=== PATIENT | male | born 1950 | race African-American/Black ===

== ENCOUNTER → 2017-10-01 | Outpatient (CLI) | payer MEDICARE, OTHER ==
[~2017-10-01] MED LIST: ALEV220T14 PO; LEVO200T4 PO; METO-393 PO; VALT1TAB PO; VIAG25TA PO
[2017-10-01 10:21] LABS: AUTOMATED NEUTROPHIL # 3.2 TH/MM3 (1.8-7.7); BASOPHIL % 0.5 % (0.0-2.0); EOSINOPHIL # 0.2 TH/MM3 (0-0.4); EOSINOPHIL % 4.2 % (0.0-4.0); HEMATOCRIT 36.3 % (39.0-51.0); HEMOGLOBIN 12.3 GM/DL (13.0-17.0); LYMPH % 29.2 % (9.0-44.0); LYMPHOCYTE # 1.7 TH/MM3 (1.0-4.8); MEAN CELL VOLUME 107.1 FL (80.0-100.0); MEAN CORPUSCULAR HEMOGLOBIN 36.2 PG (27.0-34.0); MEAN CORPUSCULAR HGB CONC 33.8 % (32.0-36.0); MEAN PLATELET VOLUME 9.2 FL (7.0-11.0); MONO % 10.9 % (0.0-8.0); MONOCYTE # 0.6 TH/MM3 (0-0.9); NEUT % 55.2 % (16.0-70.0); PLATELET COUNT 157 TH/MM3 (150-450); RED BLOOD COUNT 3.39 MIL/MM3 (4.50-5.90); RED CELL DISTRIBUTION WIDTH 13.4 % (11.6-17.2); WHITE BLOOD COUNT 5.8 TH/MM3 (4.0-11.0)
[2017-10-01 10:26] LABS: BILIRUBIN, URINE NEG (NEG); BLOOD, URINE NEG (NEG); GLUCOSE,URINE NEG (NEG); HYALINE CAST, URINE 36 /lpf (RARE); KETONE, URINE NEG (NEG); MUCUS URINE MOD /lpf (OCC); NITRITE,URINE NEG (NEG); PH, URINE 6.5 (5.0-8.5); SQUAMOUS EPITHELIAL CELL URINE <1 /hpf (0-5); URINE COLOR YELLOW (YELLW/STRAW); URINE LEUKOCYTE ESTERASE NEG (NEG)
[2017-10-01 10:30] LABS: INTERNATIONAL NORMALIZED RATIO 1.1 RATIO; PROTHROMBIN TIME - PATIENT 10.8 SEC (9.8-11.6)
[2017-10-01 10:33] LABS: AST (GOT) 20 U/L (15-37); BICARBONATE 26.7 MEQ/L (21.0-32.0); BLOOD UREA NITROGEN 13 MG/DL (7-18); CALCIUM 9.1 MG/DL (8.5-10.1); CHLORIDE 108 MEQ/L (98-107); CREATININE 1.25 MG/DL (0.60-1.30); GLOMERULAR FILTRATION RATE 70 ML/MIN (>89); GLUCOSE,FASTING 103 MG/DL (74-99); SODIUM (NA) 141 MEQ/L (136-145)
[2017-10-01 10:34] LABS: ALT (GPT) 34 U/L (12-78)
[2017-10-01 10:36] LABS: ALKALINE PHOSPHATASE 93 U/L (45-117); TOTAL BILIRUBIN ADULT 0.8 MG/DL (0.2-1.0); TOTAL PROTEIN 7.5 GM/DL (6.4-8.2)
[2017-10-01 10:42] LABS: WESTERGREN SEDIMENTATION RATE 22 mm/hr (0-20)
--- NOTE | 2017-10-01 12:19 | RADRPT ---
EXAM DATE/TIME: 10/01/2017 11:14 [facility] COMPARISON: No previous studies available for comparison. INDICATIONS : Evaluate for pneumonia, pneumothorax, or communicable disease. Pre-op left total hip. MEDICAL HISTORY : None. SURGICAL HISTORY : None. ENCOUNTER: Initial ACUITY: 1 day PAIN SCORE: 0/10 LOCATION: Bilateral chest FINDINGS: The heart size is normal. The lungs are free of focal consolidation. There does appear to be a possib le 0.9 cm mass at the lateral left lower lung. No effusion is seen. Spurs are seen in the thoracic sp ine. CONCLUSION: 1. No acute abnormality seen. 2. Possible 0.9 cm left lung mass. This can be further evaluated with a noncontrast CT examination a t some point. Garret Alvarenga MD on October 01, 2017 at 12:15 Board Certified Radiologist. This report was verified electronically.
--- NOTE | 2017-10-01 19:35 | EKG ---
Date Performed: 10/01/2017 Time Performed: 09:28:43 PTAGE: 67 years EKG: SINUS BRADYCARDIA MINIMAL VOLTAGE CRITERIA FOR LVH, CONSIDER NORMAL VARIANT BORDERLINE ECG NO PREVIOUS TRACING DOCTOR: Cameron Lovelace Interpretating Date/Time 10/01/2017 19:31:09
== END ==
LOC: CPRE 09:04
PROVIDERS: ATTEND Orthopaedic Surgery Sports Medicine
DX: Z01.812 Encounter for preprocedural laboratory examination (principal); Z01.810 Encounter for preprocedural cardiovascular examination; Z01.811 Encounter for preprocedural respiratory examination; Z01.818 Encounter for other preprocedural examination; M16.12 Unilateral primary osteoarthritis, left hip; M79.609 Pain in unspecified limb; M25.50 Pain in unspecified joint; R94.31 Abnormal electrocardiogram [ECG] [EKG]; Z96.60 Presence of unspecified orthopedic joint implant; Z79.01 Long term (current) use of anticoagulants
CPT/HCPCS: 36415; 71046; 80053; 81001; 85025; 85610; 85652; 85730; 93005

== ENCOUNTER 2017-10-18 07:00 | Inpatient (IN) | payer MEDICARE, OTHER ==
[~2017-10-18] VITALS: Ht 180.3 cm; Wt 128.4 kg
[2017-10-18] MEDS ORDERED: HYDR-3288 PO (07:09)
[2017-10-18] MEDS ORDERED: ASPI81CH6 CHEW (07:10)
[2017-10-18] MEDS ORDERED: ZOLPIDEM TARTRATE 5 MG TAB PO PRN (07:15)
[2017-10-18] MEDS ORDERED: Post-op Orders (for Pharmacy) XX ONE (07:15)
[2017-10-18] MEDS ORDERED: diphenhydrAMINE HCL 50 MG/ML VIAL IV PUSH PRN (07:15)
[2017-10-18] MEDS ORDERED: ACETAMINOPHEN/HYDROcodone 325 MG/7.5 MG TAB PO PRN (07:15)
[2017-10-18] MEDS ORDERED: ONDANSETRON HCL 4 MG/2 ML VIAL IVP PRN (07:15)
[2017-10-18] MEDS ORDERED: MORPHINE SULFATE 4 MG/ML INJ IV PUSH PRN (07:15)
[2017-10-18] MEDS ORDERED: DEXAMETHASONE SOD PHOS 20 MG/5 ML VIAL IV PUSH ONE (07:45)
[2017-10-18] MEDS ORDERED: POVIDONE IODINE 5% (ANTISEPSIS KIT) 4 APPLICATIONS EACH NARE PRN (07:45)
[2017-10-18] MEDS ORDERED: SODIUM CHLORID 0.9% 500 ML IV PRN (07:45)
[2017-10-18] MEDS ORDERED: ceFAZolin 2 GM PREMIX 50 ML IV SCH (07:45)
[2017-10-18] MEDS ORDERED: POVIDONE IODINE 7.5% SCRUB 118 ML BOTTLE TOPICAL SCH (07:45)
[2017-10-18] MEDS ORDERED: VANCOMYCIN 1000 MG/NS 250 ML (for <70 kg) IV SCH ×2 (07:45)
[2017-10-18] MEDS ORDERED: METOPROLOL TARTRATE 25 MG TAB PO PRN (07:45)
[2017-10-18] MEDS ORDERED: LACTATED RINGER'S 1000 ML IV PRN (07:45)
[2017-10-18] MEDS ORDERED: CHLORHEXIDINE GLUCONATE 4% SOLN 120 ML BTL TOPICAL SCH (07:45)
[2017-10-18] MEDS ORDERED: CHLORHEXIDINE GLUCONATE 2 % 1 PACK (2 CLOTHS) TOPICAL PRN (07:45)
[2017-10-18] MEDS ORDERED: VANCOMYCIN 1 GM/200 ML INJ 200 ML IV ONE (07:48)
[2017-10-18] MEDS ORDERED: LEVO175T2 PO (08:10)
[2017-10-18] MEDS ORDERED: TYLE325T PO (08:13)
[2017-10-18] MEDS ORDERED: TRANEXAMIC ACID IV SCH (09:00)
[2017-10-18] MEDS ORDERED: SODIUM CHLORIDE 0.9% IV SCH (09:00)
[2017-10-18] MEDS ORDERED: EXPAREL PERI-ARTICULAR INJECTION (TOTAL VOL. 60 ML) P-ARTICULR SCH ×2 (09:00)
[2017-10-18] MEDS ORDERED: TRANEXAMIC PERI-ARTICULAR 3,000 MG/NS 100 ML P-ARTICULR SCH ×2 (09:00)
[2017-10-18] MEDS: LEVOTHYROXINE SODIUM 200 MCG TAB PO SCH (09:00)
[2017-10-18] MEDS: METOPROLOL SUCCINATE 50 MG EXTENDED RELEASE TAB PO SCH (09:00)
[2017-10-18] MEDS ORDERED: GENTAMICIN SULFATE 80 MG/2 ML VIAL ONE (09:09)
[2017-10-18] MEDS ORDERED: FAMOTIDINE 20 MG/2 ML VIAL ONE (09:23)
[2017-10-18] MEDS ORDERED: ACETAMINOPHEN 1000 MG/100 ML 100 ML IV ONE (09:23)
[2017-10-18] MEDS ORDERED: MIDAZOLAM HCL 2 MG/2 ML VIAL ONE (09:23)
[2017-10-18] MEDS ORDERED: ROCURONIUM INJ 50 MG/5 ML SYRINGE IV PUSH ONE (12:00)
[2017-10-18] MEDS ORDERED: ONDANSETRON HCL 4 MG/2 ML VIAL IV ONE (12:00)
[2017-10-18] MEDS ORDERED: LIDOCAINE HCL 1% PF 5 ML SYRINGE OTHER ONE (12:00)
[2017-10-18] MEDS ORDERED: PROPOFOL 200 MG/20 ML AMP IV ONE (12:00)
[2017-10-18] MEDS ORDERED: GLYCOPYRROLATE 1 MG/5 ML SYRINGE IV PUSH ONE (12:00)
[2017-10-18] MEDS ORDERED: NEOSTIGMINE 5 MG/5 ML SYRINGE IV PUSH ONE (12:00)
[2017-10-18] MEDS ORDERED: ceFAZolin INJ 1,000 MG VIAL IV ONE (12:00)
[2017-10-18] MEDS ORDERED: LACTATED RINGER'S 1000 ML INJ 1,000 ML IV ONE (12:00)
[2017-10-18] MEDS ORDERED: DO NOT ADM ANY ANTICOAGULANT DRUGS PRN (12:29)
--- NOTE | 2017-10-18 12:38 | MP ---
cc: Gautam Way MD DATE OF OPERATION: 10/18/2017 PREOPERATIVE DIAGNOSIS: Left hip osteoarthritis. POSTOPERATIVE DIAGNOSIS: Left hip osteoarthritis. PROCEDURE: Left total hip arthroplasty. SURGEON: Gautam Way MD [employer]: Gautam Arias, physician visitor information assistant, certified ANESTHESIA: General. ESTIMATED BLOOD LOSS: 200 mL COMPLICATIONS: None. IMPLANTS USED: DePuy Corail size 13 press-fit high offset femoral stem, size 58 solid [place] Gription cup, size +4 high offset highly cross-linked polyethylene liner, size 36 mm ceramic head, +5 neck. JUSTIFICATION: This patient is a 67-year-old male with history of severe stage osteoarthritis involving the left hip. He has severe disabling pain with standing, walking, ambulation, weightbearing activities and severe pain at rest. He has failed greater than 3 months of nonoperative conservative treatment to include medication therapy, injections, ambulatory assistive aids, home exercise program, activity modification and weight loss attempts. X-rays of the left hip reveal severe osteoarthritis with [id number] joint space narrowing, subchondral sclerosis, subchondral cyst/osteophyte formation with subluxation. The patient was counseled on risks, benefits, alternatives to a total hip arthroplasty. The risks were discussed, which included but not limited to anesthesia, bleeding, infection, damage to nerves and blood vessels, fracture, dislocation, leg length discrepancy, blood clots, pulmonary embolism, even . The patient's pain is severe. He favored the benefits over the risks and he wished to proceed with surgery. PROCEDURE IN DETAIL: Written consent was obtained. The patient was identified by name, taken to the operating room, placed supine. After general anesthesia was administered, as well as 2 grams IV Ancef and 1 gram of IV vancomycin, the patient was carefully turned to a right lateral decubitus position. A lateral arm roll was placed. All bony prominences were well padded. The left hip and left lower extremity were prepped and draped using isopropyl alcohol, Hibiclens solution and ChloraPrep solution. After a timeout was performed, a longitudinal incision was made over the posterolateral aspect of the left hip. The fascial layer was incised. The piriformis and capsule were incised and tagged with #2 FiberWire suture. The hip was dislocated posteriorly. An oscillating saw was used to form a femoral neck cut. There was severe arthritis of the femoral head and neck and significant deforming arthritis surrounding this area. I removed the femoral head and neck. A 10 blade scalpel was used to excise the labrum. Sequential reaming began at size 50, was carried through a size 58. Subsequently, a solid [place] Gription cup was implanted in approximately 45 degrees of abduction and approximately 15 degrees anteversion. There was good purchase and fixation of the insertion of the solid cup. The screw hole eliminator was placed, followed by the +4 high offset polyethylene liner. The liner was impacted in place and tested for stability. Attention turned to the femur where a box cutting osteotome was used to gain entrance into the intramedullary canal of the femur. There was significant sclerosis of bone and the canal was difficult to find. I had to downsize to initially a drill bit and then sequential reaming began at size 8 in order to find the canal and then performed lateralizing reamer to remove bone, so that there would be a straight path down the femoral canal and subsequently, sequential broaching began at a size 8, was carried through to size 13. Trial head and neck combinations were evaluated and final components implanted. I did use fluoroscopic imaging to assist with the implantation and evaluation of components. With the final components implanted, the leg achieved full extension and external rotation without evidence of anterior instability or impingement. The hip could be flexed 90 degrees and internally rotated 70 degrees before evidence of posterior instability. Soft tissue tension was appropriate and clinically, the leg lengths felt relatively symmetric. Surgical wound was thoroughly irrigated with sterile Simpulse lavage, antibiotic impregnated solution. The piriformis and capsule were repaired primarily with #2 FiberWire suture. Fascial layer was closed with #1 Vicryl suture. Subcutaneous layer with 2-0 Vicryl suture. Skin was closed with Dermabond. Sterile dressing was applied. The patient tolerated procedure well. No intraoperative complications noted. Randall Arias, physician visitor information assistant, certified was present during the entire procedure to include patient positioning and the procedure itself. The medical necessity of a physician visitor information assistant was indicated in this case due to complexity of the procedure. He assisted with appropriate manipulation of the leg and also retraction of muscle, tendon, bone and neurovascular structures. He assisted with preparation of bone and also implantation of the prosthetic replacement. MD EDISON Dozier/POORNIMA , 12:09 PM , 12:38 PM YESSICA
[2017-10-18] MEDS ORDERED: *MEPERIDINE 25 MG INJ VIAL PERIprocedural Use ONLY ONE (12:41)
[2017-10-18] MEDS ORDERED: *morphine SULFATE 4 MG/ML PERIprocedure ONLY ONE ×3 (12:44→13:23)
[2017-10-18] MEDS: SODIUM CHLOR 0.9% 1000 ML INJ 1,000 ML IV SCH ×2 (13:00→17:00)
[2017-10-18] MEDS ORDERED: *ONDANSETRON 4 MG VIAL PERIprocedural Use ONLY ONE (13:29)
[2017-10-18 13:55] VITALS: BP 167/81; PULSE 65; RESP 18; TEMP 97.1; O2SAT 97
--- NOTE | 2017-10-18 14:25 | RADRPT ---
EXAM DATE/TIME: 10/18/2017 13:48 [facility] COMPARISON: No previous studies available for comparison. INDICATIONS : Post-op total left hip arthroplasty. MEDICAL HISTORY : None. SURGICAL HISTORY : None. ENCOUNTER: Subsequent ACUITY: 1 day PAIN SCORE: 0/10 LOCATION: Left hip. FINDINGS: There is a right hip arthroplasty in place. Interval left hip total arthroplasty. The blastic compone nts appear well-positioned and in gross anatomic alignment. Fossa structures appear intact without ac darshana fracture. Post surgical soft tissue changes overlying the left hip with surgical staple lines in place. CONCLUSION: 1. Status post left hip arthroplasty. The arthroplasty is well positioned and in anatomic alignment w ithout fracture. Sreekanth Marshall MD on October 18, 2017 at 14:22 Board Certified Radiologist. This report was verified electronically.
--- NOTE | 2017-10-18 15:10 | RADRPT ---
EXAM DATE/TIME: 10/18/2017 11:03 [facility] COMPARISON: No previous studies available for comparison. INDICATIONS : Left total hip replacement. MEDICAL HISTORY : Unobtainable. SURGICAL HISTORY : Unobtainable. ENCOUNTER: Initial ACUITY: 1 day PAIN SCORE: Non-responsive. LOCATION: Left hip FINDINGS: 2 images of the left hip recorded digitally the operating room using C-arm during total hip arthropla sty. CONCLUSION: Intraoperative images. Malik Mcclelland MD on October 18, 2017 at 15:08 Board Certified Radiologist. This report was verified electronically.
[2017-10-18] MEDS: ceFAZolin 2 GM PREMIX 50 ML IV SCH ×2 (15:30→21:57)
--- NOTE | 2017-10-18 15:40 | PD.CONS ---
[facility] By [facility] Way Reason for Consult Medical management Primary Care Physician Mac Burgos MD Diagnoses: (1) HTN (hypertension) (2) Hypothyroidism (3) Primary localized osteoarthrosis, pelvic region and thigh History of Present Illness 67 Y/O male with a medical history significant for HTN, Hypothyroidism and osteoarthritis admitted for left hip arthroplasty. Patient seen in his room. History reviewed. He reports that he has been dealing with arthritis for a while and he failed standard conservative therapy. Hypertension has been fairly controlled per his report. Patient currently reports feeling fatigued , otherwise his pain is currently controlled. Review of Systems Constitutional: DENIES: Fever, Weight gain, Weight loss, Chills Cardiovascular: DENIES: Chest pain, Dyspnea on Exertion Musculoskeletal: COMPLAINS OF: Joint pain Except as stated in HPI: all other systems reviewed are Neg Past Family Social History Allergies: Coded Allergies: No Known Allergies (Unverified , 10/18/17) Past Medical History HTN Ostearthritis Hypothyroidism ED Past Surgical History Right hip arthroplasty Left hip arthroplasty Reported Medications Reported Meds & Active Scripts Active Aspirin Low Dose (Aspirin) 81 Mg Chew 81 Mg CHEW BID 30 Days [place] (Hydrocodone-Acetaminophen) 7.5-325 mg Tab 1-2 Tab PO Q6H PRN Reported Tylenol (Acetaminophen) 325 Mg Tab 2 Tab PO DAILY Levothyroxine (Levothyroxine Sodium) 175 Mcg Tab 175 Mcg PO DAILY Valtrex (Valacyclovir HCl) 1,000 Mg Tab 1,000 Mg PO DAILY PRN Viagra (Sildenafil Citrate) 25 Mg Tab 25 Mg PO DAILY PRN Aleve Arthritis (Naproxen Sodium) 220 Mg Tab 220 Mg PO BID PRN Metoprolol Succinate ER 24 HR (Metoprolol Succinate) 200 Mg Tab 400 Mg PO DAILY Family History Reviewed and found to be noncontributory. Social History Does not smoke or use alcohol. Physical Exam Vital Signs Vital Signs Date Time Temp Pulse Resp B/P (MAP) Pulse Ox O2 Delivery O2 Flow Rate FiO2 10/18/17 13:55 97.1 65 18 167/81 (109) 97 10/18/17 13:53 Room Air 10/18/17 13:41 98.1 64 14 149/73 (98) 92 Room Air 10/18/17 13:15 56 16 169/77 (107) 99 Room Air 10/18/17 13:00 55 16 178/81 (113) 100 Nasal Cannula 2 10/18/17 12:45 61 16 167/80 (109) 99 Nasal Cannula 4 10/18/17 12:29 97.3 61 16 167/80 (109) 96 Nasal Cannula 4 10/18/17 08:00 98.3 63 20 169/86 (113) 96 Physical Exam GENERAL: This is a well-nourished, well-developed patient, in no apparent distress. SKIN: No rashes, ecchymoses or lesions. Cool and dry. HEAD: Atraumatic. Normocephalic. No temporal or scalp tenderness. EYES: Pupils equal round and reactive. Extraocular motions intact. No scleral icterus. No injection or drainage. ENT: Nose without bleeding, purulent drainage or septal hematoma. Throat without erythema, tonsillar hypertrophy or exudate. Uvula midline. Airway patent. NECK: Trachea midline. No JVD or lymphadenopathy. Supple, nontender, no meningeal signs. CARDIOVASCULAR: Regular rate and rhythm without murmurs, gallops, or rubs. RESPIRATORY: Clear to auscultation. Breath sounds equal bilaterally. No wheezes , rales, or rhonchi. GASTROINTESTINAL: Abdomen soft, non-tender, nondistended. No hepato-splenomegaly , or palpable masses. No guarding. MUSCULOSKELETAL: Extremities without clubbing, cyanosis, or edema. Left hip with intact post op dressing. Neurovascularly intact distally. NEUROLOGICAL: Awake and alert. Cranial nerves II through XII intact. Motor and sensory grossly within normal limits. Five out of 5 muscle strength in all muscle groups. Normal speech. Imaging Last Impressions Hip and Pelvis X-Ray 10/18/17 0706 Signed Impressions: Service Date/Time: Wednesday, October 18, 2017 13:48 - CONCLUSION: 1. Status post left hip arthroplasty. The arthroplasty is well positioned and in anatomic alignment without fracture. Sreekanth Marshall MD Hip X-Ray 10/18/17 0000 Signed Impressions: Service Date/Time: Wednesday, October 18, 2017 11:03 - CONCLUSION: Intraoperative images. Malik Mcclelland MD Assessment and Plan Problem List: (1) S/P total hip arthroplasty ICD Code: Z96.649 - Presence of unspecified artificial hip joint Plan: Routine postop care per Orthopedics Early PT Pain control. (2) Primary localized osteoarthrosis, pelvic region and thigh ICD Code: M16.10 - Unilateral primary osteoarthritis, unspecified hip (3) HTN (hypertension) ICD Code: I10 - Essential (primary) hypertension Plan: Continue Metoprolol Add Vasotec for BP >180/100 (4) Hypothyroidism ICD Code: E03.9 - Hypothyroidism, unspecified Plan: Continue Synthroid. Discussed Condition With Patient and his . Problem Qualifiers (1) S/P total hip arthroplasty: Qualified Codes: Z96.642 - Presence of left artificial hip joint Gilma Way MD Oct 18, 2017 15:40
[2017-10-18 16:00] VITALS: BP 142/74; PULSE 56; RESP 18; TEMP 97.4; O2SAT 94
[2017-10-18 21:09] VITALS: BP 158/75; PULSE 67; RESP 18; TEMP 98.2; O2SAT 100
[2017-10-18] MEDS ORDERED: ENALAPRILAT 1.25 MG/ML VIAL IV PUSH PRN (22:30)
[2017-10-18 23:34] VITALS: BP 155/74; PULSE 69; RESP 18; TEMP 98.2; O2SAT 99
[2017-10-19] MEDS: SODIUM CHLOR 0.9% 1000 ML INJ 1,000 ML IV SCH (02:57)
[2017-10-19] MEDS: ceFAZolin 2 GM PREMIX 50 ML IV SCH (03:23)
[2017-10-19 03:42] VITALS: BP 167/70; PULSE 68; RESP 17; TEMP 98.6; O2SAT 96
[2017-10-19] MEDS: LEVOTHYROXINE SODIUM 200 MCG TAB PO SCH (05:58)
[2017-10-19 06:22] LABS: HEMATOCRIT 30.1 % (39.0-51.0); HEMOGLOBIN 10.2 GM/DL (13.0-17.0); MEAN CELL VOLUME 107.4 FL (80.0-100.0); MEAN CORPUSCULAR HEMOGLOBIN 36.6 PG (27.0-34.0); MEAN CORPUSCULAR HGB CONC 34.1 % (32.0-36.0); MEAN PLATELET VOLUME 9.4 FL (7.0-11.0); PLATELET COUNT 157 TH/MM3 (150-450); RED CELL DISTRIBUTION WIDTH 13.2 % (11.6-17.2); WHITE BLOOD COUNT 9.6 TH/MM3 (4.0-11.0)
[2017-10-19 08:00] VITALS: BP 152/72; PULSE 75; RESP 18; TEMP 98.4; O2SAT 100
--- NOTE | 2017-10-19 08:27 | PD.ORT.PN ---
Subjective Post Op Day #: 1 Subjective Remarks pain under control. Objective Vitals Vital Signs Date Time Temp Pulse Resp B/P (MAP) Pulse Ox O2 Delivery O2 Flow Rate FiO2 10/19/17 07:21 Room Air 10/19/17 03:42 98.6 68 17 167/70 (102) 96 10/18/17 23:34 98.2 69 18 155/74 (101) 99 10/18/17 23:01 Room Air 10/18/17 21:09 98.2 67 18 158/75 (102) 100 10/18/17 16:00 97.4 56 18 142/74 (96) 94 10/18/17 13:55 97.1 65 18 167/81 (109) 97 10/18/17 13:53 Room Air 10/18/17 13:41 98.1 64 14 149/73 (98) 92 Room Air 10/18/17 13:15 56 16 169/77 (107) 99 Room Air 10/18/17 13:00 55 16 178/81 (113) 100 Nasal Cannula 2 10/18/17 12:45 61 16 167/80 (109) 99 Nasal Cannula 4 10/18/17 12:29 97.3 61 16 167/80 (109) 96 Nasal Cannula 4 I/O 10/18/17 10/18/17 10/18/17 10/19/17 10/19/17 10/19/17 07:00 15:00 23:00 07:00 15:00 23:00 Intake Total 2040 ml 50 ml 530 ml Output Total 350 ml 1500 ml Balance 1690 ml 50 ml -970 ml Intake Oral 240 ml 480 ml IV Total 50 ml 50 ml Other 1800 ml Output Urine Total 150 ml 1500 ml Estimated Blood Loss 200 ml # Bowel Movements 0 0 Result Diagram: 10/19/17 0430 Objective Remarks in bed, nad dressing c/d/i neg homans nvi Assessment & Plan Ortho Post Op Day #: 1 Problem List: Assessment and Plan s/p L DONY wbat - posterior hip precautions lovenox, d/c on asa 81 ok to maintain dressing unless saturated d/c planning home with hhc and pt - cleared today if does well in PT f/up dr. bowie 2 weeks Gautam Arias October 19, 2017 08:27
--- NOTE | 2017-10-19 08:28 | HHI.DCPOC ---
Discharge Care Plan Diagnosis: (1) Primary localized osteoarthrosis, pelvic region and thigh Your Health Problems Are: Difficulty with ADL Goals to Promote Your Health * To prevent worsening of your condition and complications * To maintain your health at the optimal level Directions to Meet Your Goals Take your medications as prescribed Follow your dietary instruction Follow activity as directed Keep your appointments as scheduled Take your immunizations and boosters as scheduled If your symptoms worsen call your PCP, if no PCP go to Urgent Care Center or Emergency Room Smoking is Dangerous to Your Health. Avoid second hand smoke Call the 24-hour hour crisis hotline for domestic abuse at Gautam Arias October 19, 2017 08:28
--- NOTE | 2017-10-19 08:29 | HHI.FF ---
Face to Face Verification Diagnosis: (1) Primary localized osteoarthrosis, pelvic region and thigh Physical Therapy Gait training, Safety evaluation, Transfer training, bed to chair Hip: Total hip, Protocol: Left, Progress to weight bearing Left LE Weight Bearing: WB as tolerated Nursing RN: 3 days/week x 2 weeks Nursing: Dressing changes Dressing Changes: Daily dressing change I have seen patient Cesar Rausch on 10/19/17. My clinical findings support the need for the requested home health care services because: Limited ability to care for self High risk of falls I certify that my clinical findings support that this patient is homebound because: Post-op weakness Unsteady gait/balance Gautam Arias October 19, 2017 08:29
[2017-10-19] MEDS: ACETAMINOPHEN/HYDROcodone 325 MG/7.5 MG TAB PO PRN ×2 (08:41→12:47)
[2017-10-19] MEDS: METOPROLOL SUCCINATE 50 MG EXTENDED RELEASE TAB PO SCH (09:00)
--- NOTE | 2017-10-19 10:43 | HHI.PR ---
Subjective Remarks Patient is doing well. He is working with PT. He is cleared by Ortho Evra discharge today, medically cleared also. Objective Vital Signs Date Time Temp Pulse Resp B/P (MAP) Pulse Ox O2 Delivery O2 Flow Rate FiO2 10/19/17 08:00 98.4 75 18 152/72 (98) 100 10/19/17 07:21 Room Air 10/19/17 03:42 98.6 68 17 167/70 (102) 96 10/18/17 23:34 98.2 69 18 155/74 (101) 99 10/18/17 23:01 Room Air 10/18/17 21:09 98.2 67 18 158/75 (102) 100 10/18/17 16:00 97.4 56 18 142/74 (96) 94 10/18/17 13:55 97.1 65 18 167/81 (109) 97 10/18/17 13:53 Room Air 10/18/17 13:41 98.1 64 14 149/73 (98) 92 Room Air 10/18/17 13:15 56 16 169/77 (107) 99 Room Air 10/18/17 13:00 55 16 178/81 (113) 100 Nasal Cannula 2 10/18/17 12:45 61 16 167/80 (109) 99 Nasal Cannula 4 10/18/17 12:29 97.3 61 16 167/80 (109) 96 Nasal Cannula 4 I/O 10/18/17 10/18/17 10/18/17 10/19/17 10/19/17 10/19/17 07:00 15:00 23:00 07:00 15:00 23:00 Intake Total 2040 ml 50 ml 530 ml Output Total 350 ml 1500 ml Balance 1690 ml 50 ml -970 ml Intake Oral 240 ml 480 ml IV Total 50 ml 50 ml Other 1800 ml Output Urine Total 150 ml 1500 ml Estimated Blood Loss 200 ml # Bowel Movements 0 0 Result Diagram: 10/19/17 0430 Objective Remarks GENERAL: NAD, A&Ox3 HEAD: Normocephalic. NECK: Supple, trachea midline. No lymphadenopathy. EYES: No scleral icterus. No injection or drainage. CARDIOVASCULAR: Regular rate and rhythm without murmurs, gallops, or rubs. RESPIRATORY: Breath sounds equal bilaterally. No accessory muscle use. GASTROINTESTINAL: Abdomen soft, non-tender, nondistended. MUSCULOSKELETAL: No cyanosis, or edema. Left hip bandaged SKIN: Warm and dry. NEURO: No focal neurological deficitis. A/P Problem List: (1) S/P total hip arthroplasty ICD Code: Z96.649 - Presence of unspecified artificial hip joint (2) Primary localized osteoarthrosis, pelvic region and thigh ICD Code: M16.10 - Unilateral primary osteoarthritis, unspecified hip (3) HTN (hypertension) ICD Code: I10 - Essential (primary) hypertension (4) Hypothyroidism ICD Code: E03.9 - Hypothyroidism, unspecified Assessment and Plan 67-year-old male admitted secondary to an elective left hip surgery related to osteoarthritis. S/P total hip arthroplasty Primary localized osteoarthrosis, pelvic region and thigh Continue to follow with orthopedic surgeons Continue PT Continue pain control Postop care Hypertension Continue baseline treatment Follow blood pressures Adjust treatments as needed Hypothyroidism Continue Synthroid Discharge planning Medically clear for discharge home today Problem Qualifiers (1) S/P total hip arthroplasty: Qualified Codes: Z96.642 - Presence of left artificial hip joint Charles Whitley MD October 19, 2017 10:43
[2017-10-19] MEDS ORDERED: ENOXAPARIN SODIUM 40 MG/0.4 ML SYRINGE SQ SCH (11:30)
[2017-10-19 12:00] VITALS: BP_SYST 123; BP_SYST 134; BP_DIAS 60; BP_DIAS 70; PULSE 56; RESP 18; TEMP 97.8; TEMP 98; O2SAT 81; O2SAT 95
[2017-10-19] MEDS ORDERED: MULTIVITAMINS/MINERALS THERAPEUTIC TAB PO SCH (21:00)
[2017-10-19] MEDS ORDERED: DOCUSATE SODIUM 100 MG CAP PO SCH (21:00)
== END 2017-10-19 16:24 | disposition home health service (06) | DRG 470 ==
LOC: EDUNIT# 07:00 → HSDI 07:04 → N06A 13:58 → N06B 10-19 13:34
PROVIDERS: ADMIT Orthopaedic Surgery Sports Medicine; ATTEND Orthopaedic Surgery Sports Medicine
PROC: 0SRB04A Replacement of Left Hip Joint with Ceramic on Polyethylene Synthetic Substitute, Uncemented, Open Approach (ICD-10-PCS; principal; 2017-10-18 09:47)
DX: M16.12 Unilateral primary osteoarthritis, left hip (principal); E66.9 Obesity, unspecified; I10 Essential (primary) hypertension; Z96.641 Presence of right artificial hip joint; E03.9 Hypothyroidism, unspecified; Z87.891 Personal history of nicotine dependence; Z68.39 Body mass index [BMI] 39.0-39.9, adult
CPT/HCPCS: 73501; 73502; 76000; 85027; 86850; 86900; 86901; 94150; C1776; C9290; J0131; J0690; J1100; J1580; J1650; J2175; J2250; J2270; J2405; J2710; J3010; J3370; J7030; J7050; J7120